=== PATIENT | female | born 1995 | race Hispanic/Latino ===

== ENCOUNTER 2017-12-03 15:19 | Emergency (ER) | payer BC, OTHER ==
[2017-12-03] MEDS ORDERED: NA CHLORIDE 0.9% 1,000 ML ONE (16:09)
[2017-12-03] MEDS ORDERED: KETOROLAC 30 MG/ML INJ ONE (16:09)
[2017-12-03 16:34] LABS: Absolute Lymphocytes (CBC) 3.5 K/uL (0.7-4.9); Absolute Monocytes 0.6 K/uL (0.1-1.3); Absolute Neutrophil 6.9 K/uL (1.8-8.0); Basophils % 0.9 % (0-1.3); Eosinophils % 9.4 % (0-4.4); Hematocrit 41.4 % (36.0-45.0); Lymphocytes % 28.5 % (15.3-44.8); MCH 29.6 pg (27.0-35.0); MCV 87.8 fL (80-100); MPV 9.8 fL (7.6-11.3); Monocytes % 4.9 % (3.3-12.3); RBC Red Blood Cell Count 4.72 M/uL (3.86-4.86)
--- NOTE | 2017-12-03 16:40 | RAD REPORT ---
EXAM DESCRIPTION: CT - Stone Protocol - 12/03/2017 4:27 pm CLINICAL HISTORY: Abdominal pain, right lower quadrant pain COMPARISON: None. TECHNIQUE: Axial 5 mm thick images were obtained without oral or IV contrast. The [id number] span s the entirety of the system including uppermost abdomen and lung bases. All CT scans are performed using dose optimization technique as appropriate and may include automated exposure control or mA/KV adjustment according to patient size. FINDINGS: No hydronephrosis is present and no obstructing ureteral calculi. No suspicious renal mass es. Isodense masses and pyelonephritis are not excluded on a stone protocol CT scan. Mostly contracte d urinary bladder shows no suspicious finding. No uterine abnormality. Left ovary shows no suspicious finding. Right ovary is enlarged by a 5 centim eter fluid attenuation mass. There does appear to be a trace amount of free fluid adjacent to this st ructure. Liver shows a pronounced fatty infiltration pattern. No focal liver lesions seen. Spleen and pancreas show no suspicious findings. No gallbladder or biliary tree abnormality identified. No significant a drenal finding. No suspicious bowel findings. Appendix is identified and normal. No active GI process seen. No hernia, mass or bulky lymphadenopathy noted. No free air, free fluid or inflammatory stranding. No significant bony abnormality. IMPRESSION: No appendicitis or acute GI process identifiable. No pyelonephritis or acute finding. A 5 centimeter right ovarian low-density masses probably a minimally complex cyst. Trace amount of fr ee fluid may indicate some leakage from the cyst and a potential source for right lower quadrant pain . Pronounced fatty infiltration pattern of the liver. Isodense masses and pyelonephritis are not excluded on stone protocol technique.
[2017-12-03 17:07] LABS: ALT/SGPT 116 U/L (12-78); AST/SGOT 51 U/L (15-37); Albumin 3.9 g/dL (3.4-5.0); Alkaline Phosphatase 82 U/L (45-117); BUN Blood Urea Nitrogen 7 mg/dL (7-18); Bicarbonate 24 mmol/L (21-32); Bilirubin Direct 0.1 mg/dL (0-0.2); Bilirubin Total 0.3 mg/dL (0.2-1.0); Glucose Level 94 mg/dL (74-106); Lipase 75 U/L (73-393); Potassium 3.7 mmol/L (3.5-5.1); Protein, Total 7.6 g/dL (6.4-8.2); Sodium Level 141 mmol/L (136-145)
--- NOTE | 2017-12-03 17:14 | EDPHYS ---
Physician Documentation [facility] Name: Kaylie Hall Age: 22 yrs Sex: Female : 1995 Arrival Date: 12/03/2017 Time: 15:26 Bed 17 Private MD: ED Physician Adonis Tsai HPI: 12/03 16:24 This 22 yrs old Female presents to ER via Ambulatory with complaints of kb Abdominal Pain. 16:24 The patient presents with abdominal pain middle of right side of abdomen. Onset: The kb symptoms/episode began/occurred this morning. The symptoms do not radiate. Associated signs and symptoms: none. The symptoms are described as constant, dull. Modifying factors: The symptoms are alleviated by nothing, the symptoms are aggravated by nothing. Severity of pain: At its worst the pain was mild moderate in the emergency department the pain is unchanged. The patient has not experienced similar symptoms in the past. The patient has not recently seen a physician. 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 - Social history:: Smoking status: Patient/guardian denies using tobacco. - Ebola Screening: : Patient negative for fever greater than or equal to 101.5 degrees Fahrenheit, and additional compatible Ebola Virus Disease symptoms Patient denies exposure to infectious person Patient denies travel to an Ebola-affected area in the 21 days before illness onset No symptoms or risks identified at this time. ROS: 16:24 Constitutional: Negative for fever, chills, and weight loss, Cardiovascular: Negative kb for chest pain, palpitations, and edema, Respiratory: Negative for shortness of breath, cough, wheezing, and pleuritic chest pain, Back: Negative for injury and pain, : Negative for injury, bleeding, discharge, and swelling, MS/Extremity: Negative for injury and deformity, Skin: Negative for injury, rash, and discoloration, Neuro: Negative for headache, weakness, numbness, tingling, and seizure. 16:24 Abdomen/GI: Positive for abdominal pain, Negative for nausea, vomiting, and diarrhea. Exam: 16:23 Constitutional: This is a well developed, well nourished patient who is awake, alert, kb and in no acute distress. Head/Face: Normocephalic, atraumatic. Chest/axilla: Normal chest wall appearance and motion. Nontender with no deformity. No lesions are appreciated. Cardiovascular: Regular rate and rhythm with a normal S1 and S2. No gallops, murmurs, or rubs. Normal PMI, no JVD. No pulse deficits. Respiratory: Lungs have equal breath sounds bilaterally, clear to auscultation and percussion. No rales, rhonchi or wheezes noted. No increased work of breathing, no retractions or nasal flaring. Back: No spinal tenderness. No costovertebral tenderness. Full range of motion. Skin: Warm, dry with normal turgor. Normal color with no rashes, no lesions, and no evidence of cellulitis. MS/ Extremity: Pulses equal, no cyanosis. Neurovascular intact. Full, normal range of motion. Neuro: Awake and alert, GCS 15, oriented to person, place, time, and situation. Cranial nerves II-XII grossly intact. Motor strength 5/5 in all extremities. Sensory grossly intact. Cerebellar exam normal. Normal gait. 16:23 Abdomen/GI: Inspection: obese Bowel sounds: normal, in all quadrants, Palpation: abdomen is soft and non-tender, in all quadrants. Vital Signs: 15:36 BP 125 / 84; Pulse 80; Resp 17; Temp 98.0; Pulse Ox 98% on R/A; Weight 113.4 kg; Height aj 5 ft. 6 in. (167.64 cm); 16:38 BP 124 / 83; Pulse 81; Resp 18; Pulse Ox 100% on R/A; mg2 17:52 Pulse 73; Resp 18; Pulse Ox 100% on R/A; mg2 15:36 Body Mass Index 40.35 (113.40 kg, 167.64 cm) aj MDM: 15:40 Patient medically screened. kb 16:23 Data reviewed: vital signs, nurses notes. Data interpreted: Pulse oximetry: on room air kb is 98 %. Interpretation: normal. 17:13 Counseling: I had a detailed discussion with the patient and/or guardian regarding: the kb historical points, exam findings, and any diagnostic results supporting the discharge/admit diagnosis, lab results, radiology results, the need for outpatient follow up, an OB/Gyne specialist, to return to the emergency department if symptoms worsen or persist or if there are any questions or concerns that arise at home. 12/03 16:00 Order name: Basic Metabolic Panel; Complete Time: 17:10 kb 12/03 16:00 Order name: CBC with Diff; Complete Time: 16:54 kb 12/03 16:00 Order name: Hepatic Function; Complete Time: 17:10 kb 12/03 16:00 Order name: Lipase; Complete Time: 17:10 kb 12/03 16:07 Order name: Urine Dipstick--Ancillary (enter results) eb 12/03 16:07 Order name: Urine --Ancillary (enter results) eb 12/03 16:00 Order name: IV Saline Lock; Complete Time: 16:21 kb 12/03 16:00 Order name: Labs collected and sent; Complete Time: 16:21 kb 12/03 16:00 Order name: CT Stone Protocol; Complete Time: 16:54 kb Administered Medications: 16:21 Drug: NS 0.9% 1000 ml Route: IV; Rate: 1000 ml; Site: left antecubital; mg2 17:22 Follow up: Response: No adverse reaction; IV Status: Completed infusion mg2 16:21 Drug: TORadol 30 mg Route: IVP; Site: left antecubital; mg2 17:22 Follow up: Response: No adverse reaction; Marked relief of symptoms mg2 Disposition: 18:25 Co-signature as Attending Physician, Adonis Tsai MD. rn Disposition: 12/03/17 17:14 Discharged to Home. Impression: Unspecified ovarian cysts. - Condition is Stable. - Discharge Instructions: Ovarian Cyst, [id number]. - Prescriptions for Diclofenac Sodium 75 mg Oral Tablet, Delayed Release (E.C.) - take 1 tablet by ORAL route 2 times per day As needed; 30 tablet. - Medication Reconciliation Form, Thank You Letter, Antibiotic Education, Prescription Opioid Use form. - Follow up: Private Physician; When: 2 - 3 days; Reason: Recheck today's complaints, Continuance of care, Re-evaluation by your physician. Follow up: Emergency Department; When: As needed; Reason: Worsening of condition. Signatures: Dispatcher [employer] Florence Steel, NAIL TECH-C NAIL TECH-Ckb Santiago, DiaJOSE kovacs RN, Roman, MD MD rn Gardose, Michele, RN RN mg2 Corrections: (The following items were deleted from the chart) 18:23 17:14 12/03/2017 17:14 Discharged to Home. Impression: Unspecified ovarian cysts. mg2 Condition is Stable. Forms are Medication Reconciliation Form, Thank You Letter, Antibiotic Education, Prescription Opioid Use. Follow up: Private Physician; When: 2 - 3 days; Reason: Recheck today's complaints, Continuance of care, Re-evaluation by your physician. Follow up: Emergency Department; When: As needed; Reason: Worsening of condition. kb
--- NOTE | 2017-12-03 17:14 | ER ---
Nurse's Notes [facility] Name: Kaylie Hall Age: 22 yrs Sex: Female : 1995 Arrival Date: 12/03/2017 Time: 15:26 Bed 17 Private MD: Diagnosis: Unspecified ovarian cysts Presentation: 12/03 15:35 Presenting complaint: Patient states: RLQ pain that started this AM when paint woke up. aj Reports constipation this week. Transition of care: patient was not received from another setting of care. Onset of symptoms was December 03, 2017. Risk Assessment: Do you want to hurt yourself or someone else? Patient reports no desire to harm self or others. Initial Sepsis Screen: Does the patient meet any 2 criteria? No. Patient's initial sepsis screen is negative. Does the patient have a suspected source of infection? No. Patient's initial sepsis screen is negative. Care prior to arrival: None. 15:35 Method Of Arrival: Ambulatory aj 15:35 Acuity: MICHELINE 3 aj Triage Assessment: 15:36 General: Appears in no apparent distress. comfortable, Behavior is calm, cooperative, aj appropriate for age. Pain: Complains of pain in right lower quadrant. Neuro: Level of Consciousness is awake, alert, obeys commands, Oriented to person, place, time, situation, Appropriate for age. Respiratory: Airway is patent Respiratory effort is even, unlabored, Respiratory pattern is regular, symmetrical. GI: Abdomen is non-distended, obese, Reports lower abdominal pain, constipation. Derm: Skin is intact, is healthy with good turgor, Skin is pink, warm \T\ dry. normal. 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 - Social history:: Smoking status: Patient/guardian denies using tobacco. - Ebola Screening: : Patient negative for fever greater than or equal to 101.5 degrees Fahrenheit, and additional compatible Ebola Virus Disease symptoms Patient denies exposure to infectious person Patient denies travel to an Ebola-affected area in the 21 days before illness onset No symptoms or risks identified at this time. Screenin:59 Abuse screen: Denies threats or abuse. Denies injuries from another. Nutritional mg2 screening: No deficits noted. Tuberculosis screening: No symptoms or risk factors identified. Fall Risk None identified. Assessment: 16:22 General: Appears in no apparent distress. comfortable, Behavior is calm, cooperative. mg2 Pain: Complains of pain in right lower quadrant Pain does not radiate. Pain currently is 4 out of 10 on a pain scale. Quality of pain is described as aching, Pain began gradually, Is intermittent. Neuro: Level of Consciousness is awake, alert, obeys commands, Oriented to person, place, time, situation. Cardiovascular: Capillary refill < 3 seconds Patient's skin is warm and dry. Respiratory: Airway is patent Respiratory effort is even, unlabored, Respiratory pattern is regular, symmetrical. GI: Bowel sounds present X 4 quads. Abd is soft and non tender. : No signs and/or symptoms were reported regarding the genitourinary system. EENT: No signs and/or symptoms were reported regarding the EENT system. Derm: Skin is intact, is healthy with good turgor, Skin is pink, warm \T\ dry. normal. Musculoskeletal: No signs and/or symptoms reported regarding the musculoskeletal system. 16:23 Reassessment: patient sent to ct scan. mg2 16:38 Reassessment: Patient appears in no apparent distress at this time. Patient and/or mg2 family updated on plan of care and expected duration. Pain level reassessed. Patient is alert, oriented x 3, equal unlabored respirations, skin warm/dry/pink. 17:45 Reassessment: patient for discharge but still on iv fluid. mg2 Vital Signs: 15:36 BP 125 / 84; Pulse 80; Resp 17; Temp 98.0; Pulse Ox 98% on R/A; Weight 113.4 kg; Height aj 5 ft. 6 in. (167.64 cm); 16:38 BP 124 / 83; Pulse 81; Resp 18; Pulse Ox 100% on R/A; mg2 17:52 Pulse 73; Resp 18; Pulse Ox 100% on R/A; mg2 15:36 Body Mass Index 40.35 (113.40 kg, 167.64 cm) aj ED Course: 15:26 Patient arrived in ED. mr 15:36 Triage completed. aj 15:36 Arm band placed on left wrist. Patient placed in waiting room. aj 15:40 Florence Leary [facility]-C [facility]. kb 15:40 Adonis Tsai MD is Attending Physician. kb 15:59 Chuy Kirby, RN is Primary Nurse. mg2 16:21 No provider procedures requiring assistance completed. Inserted saline lock: 22 gauge mg2 in left antecubital area, using aseptic technique. Blood collected. 16:23 Patient has correct armband on for positive identification. Bed in low position. Call mg2 light in reach. Pulse ox on. NIBP on. 16:24 CT completed. Patient tolerated procedure well. Patient moved back from CT. vr 16:26 CT Stone Protocol In Process Unspecified. EDMS 18:23 IV discontinued, intact, bleeding controlled, No redness/swelling at site. Pressure mg2 dressing applied. Administered Medications: 16:21 Drug: NS 0.9% 1000 ml Route: IV; Rate: 1000 ml; Site: left antecubital; mg2 17:22 Follow up: Response: No adverse reaction; IV Status: Completed infusion mg2 16:21 Drug: TORadol 30 mg Route: IVP; Site: left antecubital; mg2 17:22 Follow up: Response: No adverse reaction; Marked relief of symptoms mg2 Outcome: 17:14 Discharge ordered by MD. kb 18:23 Discharged to home ambulatory, with family. mg2 18:23 Condition: stable 18:23 Discharge instructions given to patient, family, Instructed on discharge instructions, follow up and referral plans. medication usage, Demonstrated understanding of instructions, follow-up care, medications, Prescriptions given X 1. 18:23 Patient left the ED. mg2 Signatures: Dispatcher [employer] EDAZ Florence Leary FNP-C FNP-Dia Reid, RN RN rose Kierra Malhotra Victoria vr Chuy Kirby, RN RN mg2
[2017-12-03 19:40] LABS: Urine Glucose NEGATIVE (NEG)
[2017-12-03 19:41] LABS: Urine Blood TRACE (NEG); Urine Protein NEGATIVE (NEG)
== END 2017-12-03 18:23 | disposition home or self-care (01) ==
LOC: ER 15:19
DX: N83.201 Unspecified ovarian cyst, right side (principal)
CPT/HCPCS: 36415; 74176; 76377; 80048; 80076; 81003; 81025; 83690; 85025; 96361; 96374; 99284; J7030